=== PATIENT | female | born 1940 | race Caucasian/White ===

== ENCOUNTER 2016-08-25 09:48 | Outpatient (CLI) | payer MEDICARE ==
[2016-08-25 12:36] LABS: Hemoglobin A1c 7.1 % (4.0-6.0)
[2016-08-25 12:46] LABS: Anion Gap 20 mmol/L (10-20); BUN (Urea Nitrogen) 13 mg/dL (9.8-20.1); Calc. Creatinine Clearance 0 mL/min (70-130); Calcium 8.9 mg/dL (7.8-10.44); Carbon Dioxide 15 mmol/L (23-31); Chloride 111 mmol/L (98-107); Estimated GFR-MDRD 57
== END 2016-08-25 09:49 | disposition home or self-care (01) ==
LOC: NAVSJIPCSP 09:48
PROVIDERS: ATTEND Internal Medicine
DX: E11.9 Type 2 diabetes mellitus without complications (principal)
CPT/HCPCS: 36415; 80048; 83036

== ENCOUNTER 2017-01-27 09:12 | Outpatient (CLI) | payer MEDICARE ==
[2017-01-27 13:59] LABS: Bilirubin Negative (Negative); Blood, Urine Negative (Negative); Clarity Clear (Clear); Glucose, Urine (Dipstick) Negative (Negative); Leukocyte Trace (Negative); Nitrite Negative (Negative); Protein, Urine (Dipstick) Negative (Neg-Trace); Specific Gravity, Urine 1.025 (1.005-1.030); Urobilinogen 0.2 mg/dL (0.2-1.0); pH, Urine 5.5 (5.0-9.0)
[2017-01-27 14:10] LABS: #Basophils 0.1 thou/uL (0.0-0.2); #Eosinphils 0.4 thou/uL (0.0-0.7); #Lymphocytes 2.4 thou/uL (1.20-3.40); #Monocytes 0.6 thou/uL (0.11-0.59); #Neutrophils 4.3 thou/uL (1.40-6.50); %Basophils 1.6 % (0.0-1.0); %Eosinophils 5.4 % (0.0-10.0); %Lymphocytes 30.1 % (21.0-51.0); Hemoglobin 10.7 g/dL (12.0-16.0); Mean Corpuscular HGB CONC 31.2 g/dL (32.0-36.0); Mean Corpuscular Hemoglobin 25.6 pg (27.0-31.0); Mean Corpuscular Volume 82.1 fl (81.0-99.0); Mean Platelet Volume 7.5 fL (7.4-10.4); Platelet Count 196 thou/uL (130-400); RBC Distribution Width 14.9 % (11.5-14.5); Red Blood Cell (RBC) Count 4.17 mill/uL (4.20-5.40); White Blood Cell (WBC) Count 7.9 thou/uL (4.8-10.8)
[2017-01-27 14:34] LABS: Bacteria/HPF Rare-Few HPF (None Seen); RBC/HPF 0-3 HPF (0-3); Squamous Epithelial 0-3 HPF (0-3)
[2017-01-27 18:06] LABS: ALT (SGPT) 9 U/L (8-55); AST (SGOT) 16 U/L (5-34); Albumin 4.1 g/dL (3.4-4.8); Alkaline Phosphatase 75 U/L (40-150); Anion Gap 18 mmol/L (10-20); BUN (Urea Nitrogen) 17 mg/dL (9.8-20.1); Bilirubin, Total 0.4 mg/dL (0.2-1.2); Calc. Creatinine Clearance 0 mL/min (70-130); Calcium 8.9 mg/dL (7.8-10.44); Carbon Dioxide 19 mmol/L (23-31); Cardiac Risk 6.4 (Less than 4.5); Chloride 108 mmol/L (98-107); Cholesterol 225 mg/dl (< 200 Desired); Estimated GFR-MDRD 49; Globulin 2.8 g/dL (2.4-3.5); Glucose 116 mg/dL (83-110); HDL Cholesterol 35 mg/dL (>60 Neg Risk); LDL Cholesterol, Calculated 141 mg/dL; Potassium 5.1 mmol/L (3.5-5.1); Protein, Total 6.9 g/dL (6.0-8.3); Sodium 140 mmol/L (136-145); Triglycerides 246 mg/dL (Less than 150)
== END 2017-01-27 09:13 | disposition home or self-care (01) ==
LOC: NAVSJIPCSP 09:12
PROVIDERS: ATTEND Internal Medicine
DX: Z79.899 Other long term (current) drug therapy (principal)
CPT/HCPCS: 36415; 80053; 80061; 81003; 81015; 83036; 84443; 85025

== ENCOUNTER 2017-07-26 11:37 | Outpatient (CLI) | payer MEDICARE ==
[2017-07-26 12:28] LABS: #Basophils 0.1 thou/uL (0.0-0.2); #Eosinphils 0.2 thou/uL (0.0-0.7); #Lymphocytes 1.6 thou/uL (1.20-3.40); #Monocytes 0.6 thou/uL (0.11-0.59); #Neutrophils 5.4 thou/uL (1.40-6.50); %Basophils 0.8 % (0.0-1.0); %Eosinophils 2.5 % (0.0-10.0); %Lymphocytes 20.4 % (21.0-51.0); %Monocytes 7.1 % (0.0-10.0); %Neutrophils 69.2 % (42.0-75.0); Hemoglobin 12.6 g/dL (12.0-16.0); Mean Corpuscular Hemoglobin 25.9 pg (27.0-31.0); Mean Corpuscular Volume 83.5 fl (81.0-99.0); Mean Platelet Volume 10.5 fL (7.4-10.4); Platelet Count 192 thou/uL (130-400); RBC Distribution Width 12.9 % (11.5-14.5); Red Blood Cell (RBC) Count 4.85 mill/uL (4.20-5.40); White Blood Cell (WBC) Count 7.8 thou/uL (4.8-10.8)
[2017-07-26 12:32] LABS: ALT (SGPT) 12 U/L (8-55); AST (SGOT) 15 U/L (5-34); Albumin 4.1 g/dL (3.4-4.8); Alkaline Phosphatase 100 U/L (40-150); Anion Gap 19 mmol/L (10-20); BUN (Urea Nitrogen) 30 mg/dL (9.8-20.1); Bilirubin, Total 0.6 mg/dL (0.2-1.2); Calc. Creatinine Clearance 0 mL/min (70-130); Calcium 9.3 mg/dL (7.8-10.44); Carbon Dioxide 19 mmol/L (23-31); Chloride 94 mmol/L (98-107); Estimated GFR-MDRD 28; Globulin 3.3 g/dL (2.4-3.5); Potassium 4.4 mmol/L (3.5-5.1); Protein, Total 7.4 g/dL (6.0-8.3); Sodium 128 mmol/L (136-145)
[2017-07-26 12:36] LABS: Bilirubin Negative (Negative); Blood, Urine Negative (Negative); Clarity Slightly Cloudy (Clear); Glucose, Urine (Dipstick) >=1000 mg/dL (Negative); Leukocyte Negative (Negative); Nitrite Positive (Negative); Protein, Urine (Dipstick) Negative (Neg-Trace); Urobilinogen 0.2 mg/dL (0.2-1.0)
[2017-07-26 12:56] LABS: Glucose 755 mg/dL (83-110)
[2017-07-26 12:58] LABS: Bacteria/HPF 2+ HPF (None Seen); RBC/HPF 0-3 HPF (0-3); Squamous Epithelial 0-3 HPF (0-3); WBC/HPF 21-50 HPF (0-3)
[2017-07-26 17:59] LABS: Hemoglobin A1c 13.6 % (4.0-6.0)
== END 2017-07-26 11:38 | disposition home or self-care (01) ==
LOC: NAV LAB 11:37
PROVIDERS: ATTEND Internal Medicine
DX: E11.9 Type 2 diabetes mellitus without complications (principal); R11.2 Nausea with vomiting, unspecified
CPT/HCPCS: 36415; 80053; 81003; 81015; 83036; 85025; 87086

== ENCOUNTER 2017-07-26 13:36 | Emergency (ER) | payer MEDICARE ==
[2017-07-26] MEDS ORDERED: cefTRIAXone\\ROCEPHIN 1 GM VIAL ONE (14:40)
[2017-07-26] MEDS ORDERED: Sodium Chloride 0.9% 1,000 ML ONE ×2 (14:41→16:09)
[2017-07-26] MEDS ORDERED: Insulin Regular 300 UNITS/3 ML VIAL ONE (14:41)
[2017-07-26 15:56] LABS: Actual Bicarbonate (HCO3a) 17.5 mEq/L (22-26); Base Excess (BEa) -5.3 mEq/L (0 (+/-) 2.5); Hemoglobin (Hb) 10.7 g/dL (12.0-16.0); pH, Arterial 7.42 (7.35-7.45)
[2017-07-26 16:09] LABS: CKMB 3.4 ng/mL (0-6.6); Troponin I 0.155 ng/mL (< 0.028)
--- NOTE | 2017-07-26 16:18 | RAD ---
PORTABLE CHEST ONE VIEW: History: 76-year-old female with altered mental status, elevated insulin and confusion. Comparison: 02-09-08 FINDINGS: Post underlying sternotomy and coronary artery bypass changes. No confluent pneumonia, overt edema, o r pleural effusion. There appear to be some minimal linear and parenchymal changes in the left costop hrenic angle region, probably representing some minimal subsegmental atelectasis or mild chronic londono ge. IMPRESSION: Mild linear and parenchymal changes in the left base and costophrenic angle having more of the appear ance of chronic change or subsegmental atelectasis. Post underlying sternotomy and coronary artery by pass graft. Atherosclerosis of the aorta. No confluent pneumonia. No overt edema. POS: [facility]
--- NOTE | 2017-07-26 16:24 | CT ---
CT BRAIN NONCONTRAST: HISTORY: A 76-year-old female with altered mental status. FINDINGS: There is no midline shift or any other mass effect. There is no evidence of acute intracranial hemor rhage, large cortical infarct, obstructive hydrocephalus, or extraaxial fluid collection. The calvar ium is intact. There is diffuse parenchymal volume loss. There are low attenuation areas in the whi te matter. These are nonspecific, but in a patient of this age, they are probably chronic ischemic w antione matter changes due to microvascular atherosclerosis. There is effacement of the right lateral p haryngeal recess. IMPRESSION: 1) No acute intracranial findings. 2) Involutional changes and chronic ischemic white matter changes. 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 This is most commonly due to secretions and/or appo sition of adjacent mucosal surfaces. Much less commonly, a small neoplasm can have this appearance. Recommend direct visualization. jn [] POS: [facility]
== END 2017-07-26 17:47 | disposition short-term general hospital (02) ==
LOC: NAV ERS 13:36
DX: N39.0 Urinary tract infection, site not specified (principal); E11.65 Type 2 diabetes mellitus with hyperglycemia; R74.0 Nonspecific elevation of levels of transaminase and lactic acid dehydrogenase [LDH]; R94.31 Abnormal electrocardiogram [ECG] [EKG]; I25.10 Atherosclerotic heart disease of native coronary artery without angina pectoris; I11.0 Hypertensive heart disease with heart failure; I50.9 Heart failure, unspecified; E11.9 Type 2 diabetes mellitus without complications; F32.9 Major depressive disorder, single episode, unspecified; Z79.4 Long term (current) use of insulin; Z87.891 Personal history of nicotine dependence; Z79.82 Long term (current) use of aspirin; Z79.899 Other long term (current) drug therapy
CPT/HCPCS: 36415; 36416; 70450; 71045; 80053; 81003; 81015; 82553; 82805; 83036; 83605; 84484; 85025; 87040; 87077; 87086; 87186; 93005; 96361; 96374; 96375; J0696; J1815; J7050

== ENCOUNTER 2018-11-01 10:01 | Inpatient (IN) | payer MEDICARE ==
[2018-11-01 11:31] LABS: #Eosinphils 0.4 thou/uL (0.0-0.7); #Lymphocytes 1.3 thou/uL (1.20-3.40); #Monocytes 0.5 thou/uL (0.11-0.59); #Neutrophils 4.6 thou/uL (1.40-6.50); %Basophils 0.6 % (0.0-1.0); %Eosinophils 5.4 % (0.0-10.0); %Lymphocytes 19.5 % (21.0-51.0); %Monocytes 7.1 % (0.0-10.0); %Neutrophils 67.5 % (42.0-75.0); Hemoglobin 9.2 g/dL (12.0-16.0); Mean Corpuscular HGB CONC 31.4 g/dL (32.0-36.0); Mean Corpuscular Hemoglobin 25.6 pg (27.0-31.0); Mean Corpuscular Volume 81.5 fL (78.0-98.0); Mean Platelet Volume 8.2 fL (7.4-10.4); Platelet Count 156 thou/uL (130-400); RBC Distribution Width 14.3 % (11.5-14.5); Red Blood Cell (RBC) Count 3.61 mill/uL (4.20-5.40); White Blood Cell (WBC) Count 6.8 thou/uL (4.8-10.8)
[2018-11-01 11:47] LABS: ALT (SGPT) 16 U/L (8-55); AST (SGOT) 24 U/L (5-34); Albumin 3.9 g/dL (3.4-4.8); Alkaline Phosphatase 80 U/L (40-150); Anion Gap 17 mmol/L (10-20); BUN (Urea Nitrogen) 35 mg/dL (9.8-20.1); Bilirubin, Total 0.3 mg/dL (0.2-1.2); Calc. Creatinine Clearance 38 mL/min (70-130); Calcium 8.6 mg/dL (7.8-10.44); Carbon Dioxide 14 mmol/L (23-31); Chloride 109 mmol/L (98-107); Estimated GFR-MDRD 32; Globulin 2.5 g/dL (2.4-3.5); Glucose 239 mg/dL (83-110); Potassium 4.3 mmol/L (3.5-5.1); Protein, Total 6.4 g/dL (6.0-8.3); Sodium 136 mmol/L (136-145)
--- NOTE | 2018-11-01 13:24 | RAD ---
CHEST PA AND LATERAL VIEWS: HISTORY: CHF. COMPARISON: 08/10/2017 FINDINGS: There are changes of median sternotomy. The heart size is borderline. The lungs are well expanded w ithout focal areas of consolidation, pneumothoraces, nancy pulmonary edema, or pleural effusions. Th ere are degenerative changes in the spine. The aorta is tortuous. IMPRESSION: No acute process. POS: [facility]
[2018-11-01 16:36] LABS: Bilirubin Negative (Negative); Blood, Urine Negative (Negative); Clarity Clear (Clear); Glucose, Urine (Dipstick) Negative (Negative); Leukocyte Negative (Negative); Nitrite Negative (Negative); Protein, Urine (Dipstick) Negative (Neg-Trace); Urobilinogen 0.2 mg/dL (0.2-1.0); pH, Urine 5.5 (5.0-9.0)
[2018-11-01] MEDS: metFORMIN 500 MG TAB PO SCH (17:29)
[2018-11-01] MEDS: Lantus 1000 UNITS/10 ML VIAL SC SCH (20:23)
[2018-11-01] MEDS: Lisinopril 5 MG TAB PO SCH (20:24)
[2018-11-01] MEDS ORDERED: Prevnar 13-Val Conj/PF 0.5 ML SYRINGE IM ONE (21:00)
[2018-11-01 21:01] LABS: Crystals/HPF 1+ TALC HPF (Negative)
[2018-11-02] MEDS: metFORMIN 500 MG TAB PO SCH ×2 (08:18→17:15)
[2018-11-02] MEDS: Atorvastatin Calcium 40 MG TAB PO SCH (08:19)
[2018-11-02] MEDS: Lisinopril 5 MG TAB PO SCH ×2 (08:19→20:28)
[2018-11-02] MEDS: Famotidine 20 MG TAB PO SCH (08:20)
[2018-11-02] MEDS: Clopidogrel Bisulfate 75 MG TAB PO SCH (08:20)
[2018-11-02] MEDS: Aspirin 81 mg Enteric Coated Tablet PO SCH (08:20)
[2018-11-02] MEDS: Lantus 1000 UNITS/10 ML VIAL SC SCH ×2 (08:21→20:28)
[2018-11-02] MEDS ORDERED: Levothyroxine Sodium 75 MCG TAB PO SCH (09:00)
[2018-11-02] MEDS ORDERED: Acetaminophen 500 MG TAB PO PRN (14:11)
--- NOTE | 2018-11-02 20:44 | PRG ---
DATE OF SERVICE: 11/02/2018 SUBJECTIVE: The patient is a 78-year-old white female with a history of coronary artery disease, type 2 diabetes, and significant vascular insufficiency and dementia, who has had recurrent hallucinations with fearfulness, falling spells, and inability to maintain ADLs. She has been admitted to the hospital, started on PT/OT and has done fairly well with therapy today, but then became completely agitated with hallucinations this afternoon, requiring giving of her nighttime Seroquel early now. She is calm and rest with no agitation and no complaints of shortness of breath or chest pain. OBJECTIVE: VITAL SIGNS: Show blood pressure is 144/63, respirations 20, O2 sats 94% on room air, and temperature 97.6. LUNGS: Clear. CARDIAC: Showed regular rhythm. ABDOMEN: Soft and nontender. LABORATORY DATA: White count 6800, hematocrit 29, hemoglobin 9. Sodium is 136, potassium 4.3, chloride 109, bicarb 14, BUN 35, creatinine 1.57, GFR 32. Troponin less than 0.010. Accu-Cheks ranged from 133 to 171. Urinalysis within normal limits. ASSESSMENT AND PLAN: 1. Stable coronary artery disease. No evidence of acute ischemia. 2. Significant deconditioning improving with therapy. 3. Type 2 diabetes, controlled to goal. 4. Severe hallucinations and vascular dementia. No evidence of acute infection and we will increase Seroquel to 150 mg twice daily and monitor therapy. Job ID: [id number]
[2018-11-03] MEDS: Levothyroxine Sodium 75 MCG TAB PO SCH (05:57)
[2018-11-03] MEDS: Atorvastatin Calcium 40 MG TAB PO SCH (08:39)
[2018-11-03] MEDS: Lisinopril 5 MG TAB PO SCH ×2 (08:39→21:04)
[2018-11-03] MEDS: metFORMIN 500 MG TAB PO SCH ×2 (08:39→17:20)
[2018-11-03] MEDS: Clopidogrel Bisulfate 75 MG TAB PO SCH (08:39)
[2018-11-03] MEDS: Aspirin 81 mg Enteric Coated Tablet PO SCH (08:40)
[2018-11-03] MEDS: Famotidine 20 MG TAB PO SCH (08:40)
[2018-11-03] MEDS: Lantus 1000 UNITS/10 ML VIAL SC SCH ×2 (08:42→21:05)
[2018-11-03 14:18] LABS: Troponin I Less than 0.010 ng/mL (< 0.028)
[2018-11-04] MEDS: Levothyroxine Sodium 75 MCG TAB PO SCH (05:15)
[2018-11-04] MEDS: Aspirin 81 mg Enteric Coated Tablet PO SCH (08:51)
[2018-11-04] MEDS: Clopidogrel Bisulfate 75 MG TAB PO SCH (08:51)
[2018-11-04] MEDS: Atorvastatin Calcium 40 MG TAB PO SCH (08:51)
[2018-11-04] MEDS: metFORMIN 500 MG TAB PO SCH ×2 (08:51→16:31)
[2018-11-04] MEDS: Lisinopril 5 MG TAB PO SCH ×2 (08:52→21:13)
[2018-11-04] MEDS: Famotidine 20 MG TAB PO SCH (08:52)
[2018-11-04] MEDS: Lantus 1000 UNITS/10 ML VIAL SC SCH ×2 (08:53→21:13)
--- NOTE | 2018-11-04 18:40 | PRG ---
DATE OF SERVICE: 11/03/2018 SUBJECTIVE: The patient is very agitated this afternoon, states that people are double end sewer at the hospital and she is very frightened, had an episode today with therapy, where she had chest pain but resolved without any treatment. OBJECTIVE: VITAL SIGNS: Show temperature is 97.5, pulse 71, respirations 18, O2 saturations 96% on room air, blood pressure 124/59. LUNGS: Clear. CARDIAC: Showed regular rhythm. ABDOMEN: Soft and nontender. SKIN/EXTREMITIES: Displayed no edema, clubbing, or cyanosis. LABORATORY DATA: Laboratory showed Accu-Cheks ranged from 105 to 133. Troponin less than 0.010. EKG shows no acute changes. ASSESSMENT: 1. Persistent confusion and agitation from vascular dementia. 2. Recurrent angina, exacerbated by stress from anxiety and dementia. 3. Type 2 diabetes, controlled to goal. PLAN: 1. Continue PT/OT. 2. Increase Seroquel to 150 twice daily. Continue sertraline 100 mg at night. 3. Stress the patient to have sitter at all times. Job ID: [id number]
[2018-11-05] MEDS: Levothyroxine Sodium 75 MCG TAB PO SCH (05:24)
[2018-11-05 05:25] VITALS: BMI 28.0
[2018-11-05] MEDS: metFORMIN 500 MG TAB PO SCH (08:22)
[2018-11-05] MEDS: Aspirin 81 mg Enteric Coated Tablet PO SCH (08:22)
[2018-11-05] MEDS: Atorvastatin Calcium 40 MG TAB PO SCH (08:23)
[2018-11-05] MEDS: Lisinopril 5 MG TAB PO SCH (08:23)
[2018-11-05] MEDS: Clopidogrel Bisulfate 75 MG TAB PO SCH (08:23)
[2018-11-05] MEDS: Famotidine 20 MG TAB PO SCH (08:23)
[2018-11-05] MEDS: Lantus 1000 UNITS/10 ML VIAL SC SCH (08:23)
[2018-11-05 12:21] VITALS: BP 126/57; TEMP 97.7
--- NOTE | 2018-11-06 03:02 | DIS ---
DATE OF ADMISSION: 11/01/2018 DATE OF DISCHARGE: 11/05/2018 FINAL DIAGNOSES: 1. Severe deconditioning, recurrent falls. 2. Type 2 diabetes, fair control. 3. Vascular dementia with behavioral disturbances. 4. Diffuse coronary artery disease. No evidence of acute ischemia. 5. Compensated congestive heart failure. HOSPITAL COURSE: The patient is a very pleasant, but confused 78-year-old white female who has developed progressive dementia and with recurrent hallucinations, delusions, and subsequent recurrent falling spells and weakness secondary to refusal to eat, take her medicines properly and sleep properly, therefore, admitted to the hospital for PT and OT while monitoring of her significant coronary artery condition and diabetes. She did well during the hospitalization as far as her vital signs with blood pressure ranging from 127/94 on admission to 154/68 on discharge. She remained afebrile, pulse is 71 to 73, respirations 18, O2 sats 96% on room air. She did walk with therapy and was fairly independent, although she did have problems with confusion and following directions and safety. She did have several episodes of delusions and hallucinations causing her to hyperventilate, become short of breath, have chest pain, but cardiac enzymes and EKG showed no acute changes. She was started on 150 mg of Seroquel at night and 50 in the morning, but then this was increased to 150 twice daily and appeared to do better with no hallucinations for the last 24 hours. She was requiring a sitter at all times, but was cooperating with therapy. On discharge, her laboratories remain stable with Accu-Cheks from 96 to 179. White count was 6800, hematocrit 29, hemoglobin 9. Sodium 136, potassium 4.3, chloride 109, bicarb is 14, BUN 35, creatinine 1.57, AST 24, ALT 16. She was felt to be improving, but still required more PT and occupational therapy and therefore was transferred to the skilled unit to continue therapy until she is stable to be transferred home or placed in a safe environment. Job ID: [id number]
== END 2018-11-05 12:26 | disposition swing bed (61) | DRG 884 ==
LOC: NAV ACUTE 10:01
PROVIDERS: ADMIT Internal Medicine; ATTEND Internal Medicine
DX: F01.51 Vascular dementia, unspecified severity, with behavioral disturbance (principal); R44.3 Hallucinations, unspecified; R29.6 Repeated falls; E11.9 Type 2 diabetes mellitus without complications; I25.10 Atherosclerotic heart disease of native coronary artery without angina pectoris; R53.81 Other malaise; F41.9 Anxiety disorder, unspecified; I50.9 Heart failure, unspecified; I11.0 Hypertensive heart disease with heart failure
CPT/HCPCS: 36416; 71046; 80053; 81001; 84484; 85025; 93306; 36415-59; J1815

== ENCOUNTER 2018-11-05 12:28 | Inpatient (IN) | payer MEDICARE ==
[2018-11-05 13:06] VITALS: BMI 28.0
[2018-11-05] MEDS ORDERED: Dextrose 5% in Water 1,000 ML IV PRN (17:42)
[2018-11-05] MEDS ORDERED: Dextrose 50% Abboject 50 ML SYRINGE SLOW IVP PRN (17:42)
[2018-11-05] MEDS ORDERED: HumaLOG 300 UNITS/3 ML VIAL SC PRN (17:42)
[2018-11-05] MEDS: Lantus 1000 UNITS/10 ML VIAL SC SCH (20:21)
[2018-11-05] MEDS: Lisinopril 5 MG TAB PO SCH (20:22)
[2018-11-05] MEDS ORDERED: INSULIN DETEMIR 8 UNIT SQ SCH (21:00)
[2018-11-06] MEDS: Levothyroxine Sodium 75 MCG TAB PO SCH (05:46)
[2018-11-06 05:47] LABS: #Eosinphils 0.5 thou/uL (0.0-0.7); #Lymphocytes 1.4 thou/uL (1.20-3.40); #Monocytes 0.4 thou/uL (0.11-0.59); #Neutrophils 2.3 thou/uL (1.40-6.50); %Basophils 0.9 % (0.0-1.0); %Eosinophils 11.7 % (0.0-10.0); %Lymphocytes 29.3 % (21.0-51.0); Hemoglobin 9.3 g/dL (12.0-16.0); Mean Corpuscular Hemoglobin 25.5 pg (27.0-31.0); Mean Corpuscular Volume 82.3 fL (78.0-98.0); Platelet Count 173 thou/uL (130-400); RBC Distribution Width 14.2 % (11.5-14.5); Red Blood Cell (RBC) Count 3.63 mill/uL (4.20-5.40); White Blood Cell (WBC) Count 4.6 thou/uL (4.8-10.8)
[2018-11-06 05:59] LABS: ALT (SGPT) 14 U/L (8-55); AST (SGOT) 19 U/L (5-34); Albumin 3.5 g/dL (3.4-4.8); Alkaline Phosphatase 75 U/L (40-150); Anion Gap 15 mmol/L (10-20); BUN (Urea Nitrogen) 48 mg/dL (9.8-20.1); Bilirubin, Total 0.2 mg/dL (0.2-1.2); Calc. Creatinine Clearance 28 mL/min (70-130); Calcium 8.7 mg/dL (7.8-10.44); Carbon Dioxide 16 mmol/L (23-31); Chloride 112 mmol/L (98-107); Estimated GFR-MDRD 23; Globulin 2.5 g/dL (2.4-3.5); Glucose 115 mg/dL (83-110); Potassium 4.3 mmol/L (3.5-5.1); Sodium 139 mmol/L (136-145)
[2018-11-06] MEDS: metFORMIN 500 MG TAB PO SCH ×2 (08:10→17:13)
[2018-11-06] MEDS: Atorvastatin Calcium 40 MG TAB PO SCH (08:11)
[2018-11-06] MEDS: Aspirin 81 mg Enteric Coated Tablet PO SCH (08:11)
[2018-11-06] MEDS: Clopidogrel Bisulfate 75 MG TAB PO SCH (08:11)
[2018-11-06] MEDS: Lantus 1000 UNITS/10 ML VIAL SC SCH ×2 (08:11→21:13)
[2018-11-06] MEDS: Lisinopril 5 MG TAB PO SCH ×2 (08:11→21:14)
[2018-11-06] MEDS ORDERED: Non-Formulary Item 1 EACH (Insulin Detemir 100 Units/Ml [Levemir] 16 UNITS) SC SCH (09:00)
[2018-11-07] MEDS: Levothyroxine Sodium 75 MCG TAB PO SCH (05:53)
[2018-11-07] MEDS: Atorvastatin Calcium 40 MG TAB PO SCH (08:14)
[2018-11-07] MEDS: metFORMIN 500 MG TAB PO SCH ×2 (08:17→18:21)
[2018-11-07] MEDS: Aspirin 81 mg Enteric Coated Tablet PO SCH (08:17)
[2018-11-07] MEDS: Clopidogrel Bisulfate 75 MG TAB PO SCH (08:17)
[2018-11-07] MEDS: Lisinopril 5 MG TAB PO SCH (08:18)
[2018-11-07] MEDS: Lantus 1000 UNITS/10 ML VIAL SC SCH ×2 (08:19→21:16)
[2018-11-08] MEDS: Levothyroxine Sodium 75 MCG TAB PO SCH (05:37)
--- NOTE | 2018-11-08 06:03 | PRG ---
DATE OF SERVICE: 11/08/2018 SUBJECTIVE: The patient is a 78-year-old white female with history of type 2 diabetes, poor control with subsequent complications of coronary artery disease, congestive heart failure, and vascular dementia with progressive problems with hallucinations and confusion, who has improved on Seroquel 150 twice daily for the last several days and is not as fearful and agitated, but is still confused. She is having problem with ADLs and safety awareness and is requiring around the clock care. She is however cooperating with therapy and is getting stronger. OBJECTIVE: VITAL SIGNS: Show her temperature is 96.9, pulse 74, respirations 18, O2 sats 95% on room air, blood pressure 138/61. LUNGS: Clear. CARDIAC: Regular rhythm. ABDOMEN: Soft and nontender. LABORATORY DATA: Shows Accu-Cheks ranging from 105 to 173. The patient is not liking hospital food and not eating snacks from home. ASSESSMENT: 1. Stable diabetes, possibly with hypoglycemia secondary to improved compliance and may need to lower dose of insulin. 2. Stable vascular dementia and behavioral agitation, on Seroquel. We will continue to monitor. 3. Deconditioning, improving well and cooperating with therapy but still requiring safety awareness training. PLAN: Continue PT, OT. Continue Accu-Cheks and possibly titrate insulin dose down. Case Management and family to assess discharge planning. Job ID: [id number]
[2018-11-08 06:34] LABS: Anion Gap 13 mmol/L (10-20); BUN (Urea Nitrogen) 42 mg/dL (9.8-20.1); Calc. Creatinine Clearance 47 mL/min (70-130); Calcium 8.5 mg/dL (7.8-10.44); Carbon Dioxide 18 mmol/L (23-31); Chloride 113 mmol/L (98-107); Estimated GFR-MDRD 41; Glucose 61 mg/dL (83-110); Potassium 4.4 mmol/L (3.5-5.1); Sodium 140 mmol/L (136-145)
--- NOTE | 2018-11-08 07:01 | HP ---
HISTORY OF PRESENT ILLNESS: The patient is a very pleasant 78-year-old white female, well known to myself with a long history of poorly-controlled diabetes with subsequent complications of diffuse ischemic cardiomyopathy with diffuse coronary artery disease and compensated congestive heart failure, who has had main problems of gradually progressive dementia with hallucinations, behavioral disturbances over the last several years. There has been no documented cerebral vascular accident, but she has progressively become more confused and agitated at times with hallucinations. This has been treated as an outpatient with fair success with Seroquel. However, she has become also very weak and has been falling multiple times and therefore has not suffered any fractures but has felt to require physical therapy and monitoring of her diabetic status in the hospital, this was done. She appeared to improve somewhat on Seroquel 150 twice daily, but continued to have problems with hallucination and instability and therefore was transferred to the skilled unit for continued PT, OT. PHYSICAL EXAMINATION: VITAL SIGNS: On transfer, her vital signs showed her to have temperature 97.1, pulse 68, respirations 16, O2 sats 95% on room air, blood pressure 142/63. HEENT: Pupils are equal, round, and reactive to light and accommodation. Sclerae anicteric. Conjunctivae pale. Oral mucous membranes well hydrated. NECK: Supple. There were no nodes or masses. JVP is not elevated. LUNGS: Clear. CARDIAC: Showed regular rhythm. There is an S4. No other gallops or murmurs. ABDOMEN: Soft and nontender with no masses or organomegaly. SKIN/EXTREMITIES: Showed no edema, clubbing, cyanosis. There are decreased pedal pulses. NEUROLOGICAL: Shows decreased sensation of pinprick in the feet and diffusely decreased strength. Also showed the patient to be intermittently confused, irritated, and tearful. LABORATORY DATA: Laboratory showed a white count of 4600, hematocrit 29, hemoglobin 9.3. Sodium was 139, potassium 4.3, chloride 112, bicarb was 16, BUN is 48, creatinine is 2.13, which is increased from previous of 1.57. Accu-Cheks 98 to 179. ASSESSMENT: 1. Type 2 diabetes controlled to goal with no evidence of hypoglycemia or hyperglycemia. 2. Coronary artery disease, diffuse ischemic cardiomyopathy, stable with no evidence of recurrent ischemia. 3. Compensated congestive heart failure. 4. Acute on chronic renal failure down to stage 4, on metformin and lisinopril. PLAN: 1. DC metformin. DC lisinopril. 2. Continue insulin 16 units morning, 8 units at bedtime and sliding scale. 3. Continue PT and OT. 4. Continue Seroquel 150 mg twice daily. Job ID: [id number]
[2018-11-08] MEDS: Aspirin 81 mg Enteric Coated Tablet PO SCH (08:17)
[2018-11-08] MEDS: Clopidogrel Bisulfate 75 MG TAB PO SCH (08:17)
[2018-11-08] MEDS: Atorvastatin Calcium 40 MG TAB PO SCH (08:21)
[2018-11-08] MEDS: Lantus 1000 UNITS/10 ML VIAL SC SCH (08:22)
[2018-11-09] MEDS: Levothyroxine Sodium 75 MCG TAB PO SCH (05:33)
[2018-11-09] MEDS: Atorvastatin Calcium 40 MG TAB PO SCH (09:08)
[2018-11-09] MEDS: Aspirin 81 mg Enteric Coated Tablet PO SCH (09:08)
[2018-11-09] MEDS: Clopidogrel Bisulfate 75 MG TAB PO SCH (09:09)
[2018-11-09] MEDS: Lantus 1000 UNITS/10 ML VIAL SC SCH (09:09)
[2018-11-10] MEDS: Levothyroxine Sodium 75 MCG TAB PO SCH (06:04)
[2018-11-10 08:11] VITALS: BP 125/54; TEMP 97.7
[2018-11-10] MEDS: Lantus 1000 UNITS/10 ML VIAL SC SCH (08:52)
[2018-11-10] MEDS: Clopidogrel Bisulfate 75 MG TAB PO SCH (08:56)
[2018-11-10] MEDS: Atorvastatin Calcium 40 MG TAB PO SCH (08:56)
[2018-11-10] MEDS: Aspirin 81 mg Enteric Coated Tablet PO SCH (08:56)
[2018-11-10] MEDS ORDERED: Sodium Chloride 0.9% 10 ML ONE (14:00)
== END 2018-11-10 14:37 | disposition home health service (06) | DRG 638 ==
LOC: NAV ACUTE 12:28
PROVIDERS: ADMIT Internal Medicine; ATTEND Internal Medicine
DX: E11.649 Type 2 diabetes mellitus with hypoglycemia without coma (principal); R44.3 Hallucinations, unspecified; F01.51 Vascular dementia, unspecified severity, with behavioral disturbance; E11.22 Type 2 diabetes mellitus with diabetic chronic kidney disease; I25.10 Atherosclerotic heart disease of native coronary artery without angina pectoris; I25.5 Ischemic cardiomyopathy; I50.9 Heart failure, unspecified; N17.9 Acute kidney failure, unspecified; N18.4 Chronic kidney disease, stage 4 (severe); R45.1 Restlessness and agitation; R53.81 Other malaise
CPT/HCPCS: 36416; 80048; 80053; 85025; J1815

== ENCOUNTER 2018-12-27 10:42 | Emergency (ER) | payer MEDICARE | END 2018-12-27 11:36 | disposition home or self-care (01) | LOC: NAV ERS 10:42 | DX: N76.4 Abscess of vulva (principal); I25.10 Atherosclerotic heart disease of native coronary artery without angina pectoris; I11.0 Hypertensive heart disease with heart failure; I50.9 Heart failure, unspecified; E11.9 Type 2 diabetes mellitus without complications; E03.9 Hypothyroidism, unspecified; E78.5 Hyperlipidemia, unspecified; F32.9 Major depressive disorder, single episode, unspecified; Z87.891 Personal history of nicotine dependence; Z79.84 Long term (current) use of oral hypoglycemic drugs; Z79.82 Long term (current) use of aspirin; Z79.4 Long term (current) use of insulin; Z79.899 Other long term (current) drug therapy | CPT/HCPCS: 99283 ==